=== PATIENT | male | born 1950 | race Caucasian/White ===

== ENCOUNTER 2018-08-27 15:42 | Emergency (ER) | payer MEDICARE, BC ==
--- NOTE | 2018-08-27 17:12 | ED ---
Upper Extremity Pain - HPI Summary HPI Summary: This patient is a 68 year old M presenting to ED accompanied by with a chief complaint of R wrist pain since 3-4 hours ago. He had a catheter ablation to the R wrist on 08/21/[address] [facility]. He reports he had a fever the night of the procedure, so he stayed another night and was discharged on . There is also some slight bruising to the R inner wrist/hand. He says he felt a aguila on his R wrist yesterday while in the shower. The patient rates the pain 3/10 in severity currently and 6-7/10 at its worst. Symptoms aggravated by nothing. Symptoms alleviated by nothing. Patient reports decreased sensation in R hand. He sees Dr. Mckeon on 09/01/18. - History of Current Complaint Chief Complaint: EDExtremityUpper Stated Complaint: POSS BLOOD CLOT IN ARM PER PT Time Seen by Provider: 08/27/18 17:02 Hx Obtained From: Patient Onset/Duration: Started Hours Ago, Still Present Timing: Constant, Lasting Hours Severity Initially: Moderate - 6-7/10 Severity Currently: Mild - 3/10 Pain Location: Wrist - right Aggravating Factor(s): Nothing Alleviating Factor(s): Nothing Associated Signs & Symptoms: Positive: Other - decreased sensation in the R hand , some bruising on the inside of the right wrist - Allergies/Home Medications Allergies/Adverse Reactions: Allergies Allergy/AdvReac Type Severity Reaction Status Date / Time No Known Allergies Allergy Verified 08/27/18 16:04 Home Medications: Home Medications Apixaban* [Eliquis*] 5 mg PO DAILY 08/27/18 [History Confirmed 08/27/18] Metoprolol Succinate 25 mg PO QAM 08/27/18 [History Confirmed 08/27/18] Omeprazole 40 mg PO QAM 08/27/18 [History Confirmed 08/27/18] Propafenone HCl [Propafenone HCl ER] 325 mg PO BID 08/27/18 [History Confirmed 08/27/18] Testosterone 1 applic TOPICAL DAILY 08/27/18 [History Confirmed 08/27/18] PMH/Surg Hx/FS Hx/Imm Hx Endocrine/Hematology History: Denies: Hx Diabetes Cardiovascular History: Denies: Hx Hypertension, Hx Pacemaker/ICD History: Denies: Hx Renal Disease Sensory History: Denies: Hx Hearing Aid Psychiatric History: Denies: Hx Panic Disorder - Surgical History Surgery Procedure, Year, and Place[place] [facility] [place] [facility] [place] CARDIOVERSION X2 2018. VARICOSE VEIN STRIPPING LEFT LEG Infectious Disease History: No Infectious Disease History: Denies: Traveled Outside the [place] in Last 30 Days - Family History Known Family History: Positive: Cardiac Disease - mother, Other Family History: CVA - mother and father - Social History Alcohol Use: Weekly Alcohol Amount: 1-2 glasses of wine weekly Substance Use Type: Reports: None Smoking Status (MU): Former Smoker Review of Systems Positive: Fever - night of the procedure (08/21/18). Negative: Chills Negative: Erythema Negative: Sore Throat Negative: Chest Pain Negative: Shortness Of Breath, Cough Negative: Abdominal Pain, Vomiting, Nausea Negative: dysuria, hematuria Positive: Other - R wrist pain. Negative: Myalgia, Edema Positive: Bruising - on the inside of the right wrist. Negative: Rash Neurological: Other - decreased sensation of the R hand; denies dizziness All Other Systems Reviewed And Are Negative: Yes Physical Exam - Summary Physical Exam Summary: Constitutional: Well-developed, Well-nourished, Alert. (-) Distressed Skin: Warm, Dry. Some bruising around the radial artery puncture sight which is new. HENT: Normocephalic; Atraumatic Eyes: Conjunctiva normal Neck: Musculoskeletal ROM normal neck. (-) JVD, (-) Stridor, (-) Tracheal deviation Cardio: Rhythm regular, rate normal, Heart sounds normal; Intact distal pulses; The pedal pulses are 2+ and symmetric. Radial pulses are 2+ and symmetric. (-) Murmur. Good pulses throughout the artery. Pulmonary/Chest wall: Effort normal. (-) Respiratory distress, (-) Wheezes, (-) Rales Abd: Soft, (-) epigastric tenderness, (-) Distension, (-) Guarding, (-) Rebound Musculoskeletal: (-) Edema. LE compartment compared to distal UE is soft. Lymph: (-) Cervical adenopathy Neuro: Alert, Oriented x3 Psych: Mood and affect Normal Triage Information Reviewed: Yes Vital Signs On Initial Exam: Initial Vitals Temp Pulse Resp BP Pulse Ox 98 F 57 16 123/56 100 08/27/18 15:59 08/27/18 15:59 08/27/18 15:59 08/27/18 15:59 08/27/18 15:59 Vital Signs Reviewed: Yes Diagnostics - Vital Signs Vital Signs Temp Pulse Resp BP Pulse Ox 08/27/18 15:59 98 F 57 16 123/56 100 - Laboratory Result Diagrams: 08/27/18 18:03 08/27/18 18:03 Lab Statement: Any lab studies that have been ordered have been reviewed, and results considered in the medical decision making process. - Ultrasound No standard instances Ultrasound Interpretation Completed By: Radiologist Summary of Ultrasound Findings: RUE (wrist) Soft Tissue US reveals UNREMARKABLE DIRECTED ULTRASOUND OF THE RIGHT WRIST WITHOUT APPRECIABLE PSEUDOANEURYSM FORMATION OR HEMATOMA. Re-Evaluation - Re-Evaluation First Eval Re-Evaluation Time: 18:48 Comment: Discussed results with the patient and plan for discharge. Patient understands and is agreeable with this plan. Course/Dx - Course Assessment/Plan: This patient is a 68 year old M presenting to ED accompanied by with a chief complaint of R wrist pain since 3-4 hours ago. The LE compartment compared to distal UE is soft, so there is no concern for compartment syndrome. In the ED course, the patient was given an ice pack to apply. The patient's right arm is not warm to the touch and there are no constitutional sx. Consulted Dr. Clarke and Dr. Miller at 1721 and they both agree that an US is an appropriate modality for evaluating the radial artery. RUE (wrist) Soft Tissue US reveals UNREMARKABLE DIRECTED ULTRASOUND OF THE RIGHT WRIST WITHOUT APPRECIABLE PSEUDOANEURYSM FORMATION OR HEMATOMA. I suspect it was a very small bleed from his arterial puncture. No palpable hematoma. He has no sx of wrist nerve compression. No paresthesia or weakness. No warmth to the touch. No evidence for cellulitis or sepsis. I recommended light compression and ice for a couple of days. The patient will be discharged with dx of ecchymosis. He was instructed to keep his appointment with Dr. Mckeon on 09/01/18. Patient understands and agrees with this plan. - Diagnoses Differential Diagnosis/HQI/PQRI: Positive: Other - ecchymosis Provider Diagnoses: Ecchymosis - Physician Notifications Discussed Care of Patient With: Amilcar Clarke Time Discussed With Above Provider: 17:21 Instructed by Provider To: Other - Consulted Dr. Clarke and Dr. Miller and they both agree that an US is an appropriate modality for evaluating the radial artery. Discharge - Sign-Out/Discharge Documenting (check all that apply): Patient Departure - discharge Patient Received Moderate/Deep Sedation with Procedure: No - Discharge Plan Condition: Stable Disposition: HOME Patient Education Materials: Ecchymosis (ED) Referrals: Jerome Alvarado MD [Primary Care Provider] - Miriam Mckeon MD [Medical Doctor] - (Keep your appointment with Dr. Mckeon on 09/01/18.) Additional Instructions: RETURN TO THE EMERGENCY DEPARTMENT FOR CHANGING OR WORSENING SYMPTOMS. I recommend light compression and ice for a couple of days. - Attestation Statements Document Initiated by Scribe: Yes Documenting Scribe: Chi Beavers Provider For Whom Scribe is Documenting (Include Credential): Alexys Corea MD Scribe Attestation: I, Chi Beavers, scribed for Alexys Corea MD on 08/27/18 at [id number]. Status of Scribe Document: Ready
[2018-08-27 18:12] LABS: Hematocrit 48 % (36-46); Hemoglobin 16.4 g/dL (14.0-18.0); Mean Corpuscular HGB Conc 34 g/dL (31-36); Mean Corpuscular Hemoglobin 35 pg (27-31); Mean Corpuscular Volume 102 fL (80-94); Mean Platelet Volume 7.7 fL (7.4-10.4); Platelet Count 243 10^3/uL (150-450); Red Blood Count 4.74 10^6 /uL (4.18-5.48); Red Cell Distribution Width 13 % (10.5-15); White Blood Count 9.6 10^3/uL (3.5-10.8)
[2018-08-27 18:27] LABS: Albumin 4.5 g/dL (3.2-5.2); Albumin/Globulin Ratio 1.3 (1-3); BUN/Creatinine Ratio 16.8 (8-20); C Reactive Protein 31.38 mg/L (<8.01); Calcium 9.8 mg/dL (8.6-10.3); EGFR African American 88.9 (>60); EGFR Non-African American 73.5 (>60); Globulin 3.4 g/dL (2-4); Potassium 4.6 mmol/L (3.5-5.0); Total Bilirubin 1.1 mg/dL (0.2-1.0); Total Protein 7.9 g/dL (6.4-8.9)
[2018-08-27 18:57] VITALS: BP 126/71
== END 2018-08-27 18:56 | disposition home or self-care (01) ==
LOC: ED 15:42
DX: L76.32 Postprocedural hematoma of skin and subcutaneous tissue following other procedure (principal); Z79.01 Long term (current) use of anticoagulants; Z87.891 Personal history of nicotine dependence
CPT/HCPCS: 36415; 80053; 83605; 85027; 86140; 99282

== ENCOUNTER 2020-06-21 12:00 | Observation (INO) ==
[~2020-06-21 12:00] MED LIST: Buffered Lidocaine 1% SYRIN 1 ml INTRADERM ONE; Famotidine IV 10 MG/ML 2 ml VIAL (20 mg) IV ONE; Lactated Ringers 1000 ml BAG 1,000 ML IV SCH
[2020-06-21] MEDS ORDERED: Lidocaine 2% PF 5 ML VIAL ONE ×2 (12:03→13:32)
[2020-06-21] MEDS ORDERED: Dexamethasone IV 4 MG/ML VIAL 1 ml VIAL ONE (12:03)
[2020-06-21] MEDS ORDERED: Ondansetron 4 mg VIAL 2 MG/ML 2 ml VIAL ONE (12:03)
[2020-06-21] MEDS ORDERED: Famotidine IV 10 MG/ML 2 ml VIAL (20 mg) ONE (12:52)
[2020-06-21] MEDS ORDERED: ceFAZolin 2 GM PREMIX 2 GM/50 ML BAG ONE (12:52)
[2020-06-21] MEDS ORDERED: ROPIVACAINE 5 MG/ML 30 ML BTL (0.5%) ONE ×2 (13:20→13:32)
[2020-06-21] MEDS ORDERED: Midazolam 5 mg/5 ml VIAL 1 mg/ml 5 ml VIAL (5 mg) ONE (13:31)
[2020-06-21] MEDS ORDERED: fentaNYL 100 mcg/2 ml 50 MCG/ML VIAL ONE ×2 (13:31→13:45)
[2020-06-21] MEDS ORDERED: Propofol 10 mg/ml 100 ML BTL 100 ML ONE (13:42)
[2020-06-21] MEDS ORDERED: Ketamine HCL 50 mg/ml 10 ml VIAL (500 MG) ONE (13:45)
[2020-06-21] MEDS ORDERED: EPHEDrine (Pressors) 50 MG/ML VIAL ONE (14:38)
[2020-06-21] MEDS ORDERED: diPHENhydraMINE 25 mg TAB PO PRN (15:28)
[2020-06-21] MEDS ORDERED: diPHENhydraMINE IV 50 MG/ML 1 ml VIAL (BENADRYL) IV PRN (15:28)
[2020-06-21] MEDS ORDERED: Lactulose 30 ml UDC PO PRN (15:28)
[2020-06-21] MEDS ORDERED: Magnesium Hydroxide LIQ 30 ML UDC PO PRN (15:28)
[2020-06-21] MEDS ORDERED: Ondansetron ODT 4 mg TAB 4 MG TAB PO PRN (15:28)
[2020-06-21] MEDS ORDERED: Ondansetron 4 mg VIAL 2 MG/ML 2 ml VIAL IV PRN ×2 (15:28→15:30)
[2020-06-21] MEDS ORDERED: Naloxone 0.4 mg VIAL 0.4 mg/ml 1 ml VIAL IV PRN (15:30)
[2020-06-21] MEDS ORDERED: HYDROmorphone 1 MG/1 ML SYRINGE IV PRN (15:30)
[2020-06-21] MEDS ORDERED: fentaNYL 100 mcg/2 ml 50 MCG/ML VIAL IV PRN (15:30)
[2020-06-21] MEDS ORDERED: Lactated Ringers 1000 ml BAG 1,000 ML IV SCH (16:00)
[2020-06-21] MEDS: Magnesium Hydroxide LIQ 30 ML UDC PO SCH (20:32)
[2020-06-21] MEDS: CMCS:Propafenone ER 225 mg CAP (NF) 225 MG CAP.ER PO SCH (20:32)
[2020-06-21] MEDS: Morphine 2 MG/ML SYRINGE IV PRN (20:33)
[2020-06-21] MEDS: ceFAZolin 1 GM ADVAN 1 GM in NS 0.9% 50 ML 50 ML IVPB SCH (22:02)
[2020-06-22] MEDS: Morphine 2 MG/ML SYRINGE IV PRN (02:04)
[2020-06-22] MEDS: ceFAZolin 1 GM ADVAN 1 GM in NS 0.9% 50 ML 50 ML IVPB SCH ×2 (05:38→12:40)
[2020-06-22 06:01] LABS: Hematocrit 41 % (42-52); Hemoglobin 14.4 g/dL (14.0-18.0); Mean Platelet Volume 8.1 fL (7.4-10.4); Platelet Count 157 10^3/uL (150-450)
[2020-06-22 06:17] LABS: BUN/Creatinine Ratio 22.4 (8-20); Calcium 8.5 mg/dL (8.6-10.3); EGFR African American 107.8 (>60); EGFR Non-African American 89.1 (>60); Potassium 4.7 mmol/L (3.5-5.0)
[2020-06-22] MEDS: Magnesium Hydroxide LIQ 30 ML UDC PO SCH (09:00)
[2020-06-22] MEDS ORDERED: Vitamin THERAPEUTIC TAB PO SCH (09:00)
[2020-06-22] MEDS: CMCS:Propafenone ER 225 mg CAP (NF) 225 MG CAP.ER PO SCH (09:01)
[2020-06-22 11:36] VITALS: BP 110/54
== END 2020-06-22 14:05 | disposition home or self-care (01) ==
LOC: INTOOBSV 12:34 → AA 12:34 → SSU 18:13 → AA 18:17
PROVIDERS: ADMIT Orthopaedic Surgery Adult Reconstructive Orthopaedic Surgery; ATTEND Orthopaedic Surgery Adult Reconstructive Orthopaedic Surgery